=== PATIENT | female | born 1985 | race African-American/Black ===

== ENCOUNTER 2018-05-12 11:05 | Emergency (ER) | payer SELFPAY ==
[~2018-05-12] VITALS: Ht 165.1 cm; Wt 110.6 kg
[~2018-05-12 11:05] MED LIST: MEGACE20 MG PO
[2018-05-12 11:42] LABS: APPEARANCE CLOUDY ((CLEAR)); BILIRUBIN NEGATIVE; BLOOD LARGE; GLUCOSE (STRIP) NEGATIVE; KETONES NEGATIVE; LEUKOCYTES NEGATIVE; NITRITE NEGATIVE; PROTEIN (STRIP) 100; SPECIFIC GRAVITY 1.016 (1.000-1.030); UROBILINOGEN 0.2 MG/DL (0.2-1.0)
[2018-05-12 11:44] LABS: COLOR RED ((YELLOW))
[2018-05-12 11:53] LABS: CHLORIDE 106 mEq/L (99-109); POTASSIUM 4.4 mEq/L (3.7-5.4); SODIUM 140 mEq/L (136-147)
[2018-05-12 11:54] LABS: HEMATOCRIT 30.6 % (36.0-46.0); HEMOGLOBIN 10.7 G/DL (11.9-15.5); MCH 25.5 PG (29.0-34.0); MCV 72.9 FL (83-99); PLATELET COUNT 289 K/uL (156-360); RBC DIS.WIDTH-CV 15.4 % (11.8-14.6); RBC DIS.WIDTH-SD 40.6 % (39-53); WHITE BLOOD COUNT 9.7 K/uL (4.1-10.2)
[2018-05-12 11:55] LABS: GLUCOSE 146 mg/dL (70-99)
[2018-05-12 11:59] LABS: GFR ESTIMATE (CALCULATED) > 59 mL/min/
[2018-05-12 12:00] LABS: UREA NITROGEN (BUN) 14 mg/dL (9-23)
[2018-05-12 12:07] LABS: QUANTITATIVE HCG < 4.0 MIU/ML
[2018-05-12 12:09] LABS: RED BLOOD CELLS TNTC /HPF (0-5); UCUL ADDED? YES
[2018-05-12] MEDS ORDERED: JUNEL FE 1.5-31 EACH PO (13:49)
[2018-05-12 14:19] VITALS: BP 117/84
== END 2018-05-12 14:20 | disposition home or self-care (01) ==
LOC: EME 11:05
DX: N92.1 Excessive and frequent menstruation with irregular cycle (principal); D25.9 Leiomyoma of uterus, unspecified
CPT/HCPCS: 76856; 80048; 81003; 84702; 85027; 86900; 86901; 87086; 99281; 99284